=== PATIENT | female | born 1965 | race Caucasian/White ===

== ENCOUNTER 2025-01-22 23:08 | Emergency (ER) | payer OTHER ==
[2025-01-22 23:19] VITALS: RESP 18
--- NOTE | 2025-01-22 23:32 | ED ---
ENT HPI - General Chief complaint: ENT Stated complaint: Ear Pain, Throat Pain Time Seen by Provider: 01/22/25 23:29 Source: patient, RN notes reviewed Mode of arrival: ambulatory Limitations: no limitations - History of Present Illness Initial comments: Patient is a 59-year-old female presented the ER for evaluation of sore throat and bilateral ear pain. Patient states a couple of nights ago she began to experience a dry cough. She believed it may be allergies for which she took Claritin. She states tonight while at her granddaughters play she started to experience a sore throat. She states this progressively worsened throughout the play and she also noticed bilateral ear discomfort. She states it is painful to swallow but denies any difficulty breathing, handling secretions or wheezing. Patient states her ear discomfort is a pressure sensation. She denies any drainage or decreased ability to hear out of ears. Besides Claritin she has not taken anything for her symptoms. She denies any fevers, chills, nausea, vomiting, chest pain, shortness of breath, abdominal pain or other complaints. Patient is a smoker. - Related Data Home Medications Medication Instructions Recorded Confirmed Albuterol Inhaler [Ventolin Hfa 1 - 2 puff INHALATION Q6HR PRN 12/21/15 12/26/15 Inhaler] Clindamycin [Cleocin] 150 mg PO Q6H 12/21/15 12/26/15 Previous Rx's Medication Instructions Recorded Famotidine [Pepcid] 20 mg PO BID PRN #15 tablet 10/29/15 Allergies Allergy/AdvReac Type Severity Reaction Status Date / Time cephalexin monohydrate Allergy Nausea Verified 01/22/25 23:19 [From Keflex] Penicillins Allergy Rash/Hives Verified 01/22/25 23:19 Review of Systems ROS Statement: Those systems with pertinent positive or pertinent negative responses have been documented in the HPI. ROS Other: All systems not noted in ROS Statement are negative. Past Medical History Past Medical History: Asthma History of Any Multi-Drug Resistant Organisms: None Reported Past Surgical History: Cholecystectomy, Hysterectomy, Tonsillectomy Past Anesthesia/Blood Transfusion Reactions: No Reported Reaction Past Psychological History: No Psychological Hx Reported Smoking Status: Current every day smoker Past Alcohol Use History: None Reported Past Drug Use History: None Reported - Past Family History Mother Family Medical History: No Reported History General Exam Limitations: no limitations General appearance: alert, in no apparent distress ENT exam: Present: normal oropharynx (Mild erythema to oropharynx. No edema or exudates or uvular deviation), mucous membranes moist, TM's normal bilaterally (no mastoid tenderness bilaterally. external auditory canal unremarkable ) Neck exam: Present: normal inspection. Absent: tenderness, meningismus, lymphadenopathy Respiratory exam: Present: normal lung sounds bilaterally. Absent: respiratory distress, wheezes, rales, rhonchi, stridor Cardiovascular Exam: Present: regular rate, normal rhythm, normal heart sounds. Absent: systolic murmur, diastolic murmur, rubs, gallop, clicks Extremities exam: Present: normal inspection, full ROM, normal capillary refill. Absent: tenderness, pedal edema, joint swelling, calf tenderness Neurological exam: Present: alert, oriented X3, CN II-XII intact Skin exam: Present: warm, dry, intact, normal color. Absent: rash Course Vital Signs 01/22/25 01/23/25 23:17 00:42 Temperature 98.1 F 97.7 F Pulse Rate 93 68 Respiratory 18 18 Rate Blood Pressure 136/80 142/84 O2 Sat by Pulse 97 98 Oximetry Medical Decision Making - Medical Decision Making Was pt. sent in by a medical professional or institution (, PA, MACHINE ASSEMBLER, urgent care, hospital, or residential...) When possible be specific @ -No Did you speak to anyone other than the patient for history (EMS, parent, family, police, friend...)? What history was obtained from this source @ -No Did you review nursing and triage notes (agree or disagree)? Why? @ -I reviewed and agree with nursing and triage notes Were old charts reviewed (outside hosp., previous admission, EMS record, old EKG, old radiological studies, urgent care reports/EKG's, residential records)? Report findings @ -No old charts were reviewed Differential Diagnosis (chest pain, altered mental status, abdominal pain women, abdominal pain men, vaginal bleeding, weakness, fever, dyspnea, syncope, hea dache, dizziness, GI bleed, back pain, seizure, CVA, palpatations, mental health, musculoskeletal)? @ -COVID, RSV, influenza, viral sinusitis, pneumonia, strep pharyngitis, this list is not meant to be all-inclusive EKG interpreted by me (3pts min.). @ -None done X-rays interpreted by me (1pt min.). @ -None done CT interpreted by me (1pt min.). @ -None done U/S interpreted by me (1pt. min.). @ -None done What testing was considered but not performed or refused? (CT, X-rays, U/S, labs)? Why? @ -None What meds were considered but not given or refused? Why? @ -None Did you discuss the management of the patient with other professionals (professionals i.e. , PA, MACHINE ASSEMBLER, lab, RT, psych nurse, public health social worker, plodding machine operator, teacher, dispatch officer, case advocate)? Give summary @ -No Was smoking cessation discussed for >3mins.? @ -I discussed smoking cessation for greater than 3 minutes. The risk of smoking were discussed with the patient including but not limited to risks of cancer, stroke, coronary artery disease and COPD. Also discussed with patient were multiple methods of quitting smoking. Lastly we discussed the financial cost of smoking. Was critical care preformed (if so, how long)? @ -No Were there social determinants of health that impacted care today? How? (Homelessness, low income, unemployed, alcoholism, drug addiction, transportation, low edu. Level, literacy, decrease access to med. care, fci, rehab)? @ -No Was there de-escalation of care discussed even if they declined (Discuss DNR or withdrawal of care, Hospice)? DNR status @ -No What co-morbidities impacted this encounter? (DM, HTN, Smoking, COPD, CAD, Cancer, CVA, ARF, Chemo, Hep., AIDS, mental health diagnosis, sleep apnea, morbid obesity)? @ -Smoker Was patient admitted / discharged? Hospital course, mention meds given and route, prescriptions, significant lab abnormalities, going to OR and other pertinent info. @ -Discharge. 59-year-old female presented to the ER for evaluation of sore throat and bilateral ear discomfort. Upon arrival vital signs stable. My evaluation patient is in no signs of acute distress nontoxic-appearing. There is mild erythema noted to oropharynx. No tonsillar edema, exudates or uvular deviation noted. Bilateral tympanic membranes without evidence of erythema or bulging. No mastoid tenderness bilaterally. Patient will receive symptomatic treatment with ibuprofen and viral swabs will be obtained. Influenza, RSV, COVID and strep negative. Patient will receive p.o. Decadron to aid with symptom control prior to discharge. I advised her to follow-up closely with PCP and to continue taking [id number] ibuprofen, Tylenol and Claritin for symptom control. Return parameters discussed. Patient discharged stable condition. Patient verbally expressed understanding and agreement with care plan. Case discussed with ED attending, Dr. Renteria. Undiagnosed new problem with uncertain prognosis? @ -No Drug Therapy requiring intensive monitoring for toxicity (Heparin, Nitro, Insulin, Cardizem)? @ -No Were any procedures done? @ -No Diagnosis/symptom? @ -Viral pharyngitis/viral illness Acute, or Chronic, or Acute on Chronic? @ -Acute Uncomplicated (without systemic symptoms) or Complicated (systemic symptoms)? @ -Uncomplicated Side effects of treatment? @ -No Exacerbation, Progression, or Severe Exacerbation? @ -No Poses a threat to life or bodily function? How? (Chest pain, [place], [place], pneumonia, PE, COPD, DKA, ARF, appy, cholecystitis, CVA, Diverticulitis, Homicidal, Suicidal, threat to staff... and all critical care pts) @ -Low - Lab Data Lab Results 01/22/25 01/22/25 Range/Units 23:36 23:36 Influenza Type A (PCR) Not Detected (Not Detectd) Influenza Type B (PCR) Not Detected (Not Detectd) RSV (PCR) Not Detected (Not Detectd) SARS-CoV-2 (PCR) Not Detected (Not Detectd) Group A Strep (PCR) NOT DETECTED (Not Detectd) Disposition Clinical Impression: Viral illness, Viral pharyngitis Disposition: HOME SELF-CARE Condition: Stable Instructions (If sedation given, give patient instructions): Strep Throat (ED) Additional Instructions: You may take [id number] ibuprofen and Tylenol for pain control. Follow-up with PCP. Return to the ER for any new or worsening concerns Is patient prescribed a controlled substance at d/c from ED?: No Referrals: None,Stated [Primary Care Provider] - 1-2 days [facility] [NON-STAFF] - 1-2 days [facility] [NON-STAFF] - 1-2 days Forms: Area PCPs Time of Disposition: 00:33
[2025-01-22] MEDS: IBUPROFEN 800 MG TAB PO STA (23:42)
[2025-01-23 00:22] LABS: Influenza A Not Detected (Not Detectd); Influenza B Not Detected (Not Detectd); RSV Not Detected (Not Detectd)
[2025-01-23] MEDS: dexAMETHasone 2 MG TAB PO STA (00:39)
[2025-01-23 00:45] VITALS: BP 142/84; PULSE 68; TEMP 97.7
== END 2025-01-23 00:42 | disposition home or self-care (01) ==
LOC: EC 23:08
DX: J02.8 Acute pharyngitis due to other specified organisms (principal); B97.89 Other viral agents as the cause of diseases classified elsewhere; F17.200 Nicotine dependence, unspecified, uncomplicated; Z88.0 Allergy status to penicillin; Z88.1 Allergy status to other antibiotic agents
CPT/HCPCS: 87651; 87636; 99283; 99406; J8540